=== PATIENT | male | born 1975 | race African-American/Black ===

== ENCOUNTER 2022-03-07 12:15 | Inpatient (IN) | payer OTHER ==
[~2022-03-07] VITALS: Ht 182.9 cm; Wt 83.0 kg
[2022-03-07 13:12] LABS: Albumin 3.7 g/dL (3.4-5.0); Calcium 10.4 mg/dL (8.5-10.1); Magnesium 2.4 mg/dL (1.6-2.6)
[2022-03-07 13:15] LABS: Bilirubin, Total 0.6 mg/dL (0.2-1.0); Total Protein 8.5 g/dL (6.4-8.2)
[2022-03-07] MEDS ORDERED: SODIUM CHLORIDE 0.9% 1,000 ML IV ONE ×2 (13:15)
[2022-03-07] MEDS ORDERED: InsuLIN REG 1unit/0.01ml Soln (100units/ml) IV ONE (13:15)
[2022-03-07 13:43] LABS: BUN/Creatinine Ratio 14.9
[2022-03-07 13:44] LABS: Eosinophils # (auto) 0 10 ^3/uL (0-0.8); Eosinophils % (auto) 0.7 % (0.0-7.0); Hemoglobin 14.6 g/dL (13.5-17.5); Monocytes # (auto) 0.7 10 ^3/uL (0-1.3); Neutrophils # (auto) 3.9 10 ^3/uL (1.6-8.6); Nucleated Red Blood Cells % 0.1 %
[2022-03-07] MEDS ORDERED: ASPirin 325 MG TAB PO ONE ×2 (13:45→21:15)
[2022-03-07 13:46] LABS: Basophils # (auto) 0.1 10 ^3/uL (0-0.2); Basophils % (auto) 0.9 % (0.0-2.0); Hematocrit 46.8 % (41.0-53.0); Lymphocytes # (auto) 1.5 10 ^3/uL (0.4-5.4); Lymphocytes % (auto) 24.7 % (10.0-50.0); Mean Corpuscular Hemoglobin 26.4 pg (28.0-32.0); Mean Corpuscular Hgb Conc. 31.3 g/dL (32.0-36.0); Mean Corpuscular Volume 84.5 fL (80.0-100.0); Monocytes % (auto) 11.3 % (0.0-12.0); Neutrophils % (auto) 62.4 % (37.0-80.0); Red Blood Cells 5.54 10^6/uL (4.5-5.90); Red Cell Distribution Width 15.4 % (11.8-14.3); White Blood Cell 6.2 10^3/uL (4.4-10.8)
[2022-03-07 14:23] LABS: Lactic Acid w/Reflex 2.5 mmol/L (0.4-2.0)
[2022-03-07 14:54] LABS: Urine Bacteria NONE SEEN /hpf (None Seen); Urine Blood Negative /uL (Negative); Urine Specific Gravity 1.029 (1.001-1.035); Urine WBC 1 /hpf (0 - 3)
[2022-03-07] MEDS ORDERED: NITROGLYCERIN 0.4 MG SL TAB SL PRN (20:15)
[2022-03-07] MEDS ORDERED: InsuLIN R (HUMAN) 100 UNITS in SODIUM CHL 0.9% 99 ML IV SCH (20:15)
[2022-03-07] MEDS ORDERED: ONDANSETRON HCL 4 MG/2 ML VIAL IV PRN (20:15)
[2022-03-07] MEDS ORDERED: INSULIN LANTUS (GLARGINE) 1 /0.01ml (100units/ml) SC ONE (20:15)
[2022-03-07] MEDS ORDERED: MORPHINE SULFATE INJ 2 MG/ml SYRG IV PRN (20:15)
[2022-03-07] MEDS ORDERED: DEXTROSE (50%) 50ML SYRG IV PRN (20:15)
[2022-03-07 20:48] LABS: Cholesterol 351 mg/dL (< 200); Triglycerides 239 mg/dL (< 150)
[2022-03-07 20:51] LABS: HDL Cholesterol 65 mg/dL (40-59); LDL Cholesterol 263 mg/dL (< 100)
[2022-03-07 21:34] LABS: Magnesium 2.4 mg/dL (1.6-2.6); Phosphorus 2.5 mg/dL (2.5-4.90)
[2022-03-07] MEDS: ACCU-CHEK COMFORT CURVE STRIP VI SCH ×2 (22:00→22:55)
[2022-03-08] MEDS: ATORVASTATIN 20 MG TAB PO SCH ×2 (00:06→22:29)
[2022-03-08] MEDS: ACCU-CHEK COMFORT CURVE STRIP VI SCH ×5 (00:08→22:42)
[2022-03-08] MEDS ORDERED: DEXTROSE (50%) 50ML SYRG IV PRN (00:45)
[2022-03-08] MEDS ORDERED: InsuLIN REG 1unit/0.01ml Soln (100units/ml) SC ONE (00:45)
[2022-03-08 00:55] LABS: BUN/Creatinine Ratio 15.3; Calcium 10.2 mg/dL (8.5-10.1)
[2022-03-08] MEDS ORDERED: SODIUM CHLORIDE 0.9% 1,000 ML IV SCH (02:15)
[2022-03-08 06:24] LABS: Basophils # (auto) 0 10 ^3/uL (0-0.2); Basophils % (auto) 0.9 % (0.0-2.0); Eosinophils # (auto) 0.1 10 ^3/uL (0-0.8); Eosinophils % (auto) 2.5 % (0.0-7.0); Hematocrit 41.5 % (41.0-53.0); Hemoglobin 13.9 g/dL (13.5-17.5); Lymphocytes # (auto) 2.1 10 ^3/uL (0.4-5.4); Lymphocytes % (auto) 38.3 % (10.0-50.0); Mean Corpuscular Hemoglobin 26.9 pg (28.0-32.0); Mean Corpuscular Hgb Conc. 33.4 g/dL (32.0-36.0); Mean Corpuscular Volume 80.5 fL (80.0-100.0); Monocytes # (auto) 0.7 10 ^3/uL (0-1.3); Monocytes % (auto) 12.7 % (0.0-12.0); Neutrophils # (auto) 2.5 10 ^3/uL (1.6-8.6); Neutrophils % (auto) 45.6 % (37.0-80.0); Nucleated Red Blood Cells % 0.1 %; Red Blood Cells 5.15 10^6/uL (4.5-5.90); Red Cell Distribution Width 15.2 % (11.8-14.3); White Blood Cell 5.5 10^3/uL (4.4-10.8)
[2022-03-08 06:35] LABS: BUN/Creatinine Ratio 17.1; Calcium 9.8 mg/dL (8.5-10.1); Potassium 4.3 mmol/L (3.5-5.1)
[2022-03-08] MEDS: InsuLIN REG 1unit/0.01ml Soln (100units/ml) SC SCH ×3 (06:46→17:17)
[2022-03-08] MEDS ORDERED: INSULIN LANTUS (GLARGINE) 1 /0.01ml (100units/ml) SC SCH (10:00)
[2022-03-08] MEDS: ENOXAPARIN SOD 40 MG/0.4 ML SYRINGE SC SCH (10:01)
[2022-03-08] MEDS: ASPirin 81 mg TAB PO SCH (10:01)
[2022-03-08 13:27] LABS: BUN/Creatinine Ratio 14.4; Calcium 10.2 mg/dL (8.5-10.1)
[2022-03-08 18:29] LABS: Potassium 3.7 mmol/L (3.5-5.1)
[2022-03-08 18:34] LABS: BUN/Creatinine Ratio 17.8; Calcium 10.1 mg/dL (8.5-10.1)
[2022-03-08] MEDS ORDERED: InsuLIN REG 1unit/0.01ml Soln (100units/ml) SC SCH (22:00)
[2022-03-09 07:11] LABS: Basophils # (auto) 0 10 ^3/uL (0-0.2); Basophils % (auto) 0.7 % (0.0-2.0); Eosinophils # (auto) 0.2 10 ^3/uL (0-0.8); Eosinophils % (auto) 3.1 % (0.0-7.0); Hemoglobin 12.8 g/dL (13.5-17.5); Lymphocytes # (auto) 2.3 10 ^3/uL (0.4-5.4); Lymphocytes % (auto) 45.6 % (10.0-50.0); Mean Corpuscular Volume 81.3 fL (80.0-100.0); Monocytes # (auto) 0.7 10 ^3/uL (0-1.3); Monocytes % (auto) 12.9 % (0.0-12.0); Neutrophils # (auto) 1.9 10 ^3/uL (1.6-8.6); Neutrophils % (auto) 37.7 % (37.0-80.0); Nucleated Red Blood Cells % 0.2 %; Red Blood Cells 4.92 10^6/uL (4.5-5.90); Red Cell Distribution Width 15.3 % (11.8-14.3); White Blood Cell 5.1 10^3/uL (4.4-10.8)
[2022-03-09 07:17] LABS: Calcium 9.4 mg/dL (8.5-10.1); Potassium 3.6 mmol/L (3.5-5.1)
[2022-03-09 07:19] LABS: BUN/Creatinine Ratio 21.7
[2022-03-09] MEDS: ACCU-CHEK COMFORT CURVE STRIP VI SCH ×2 (07:20→12:30)
[2022-03-09] MEDS: InsuLIN REG 1unit/0.01ml Soln (100units/ml) SC SCH ×2 (07:23→12:34)
[2022-03-09] MEDS ORDERED: INSULIN LANTUS (GLARGINE) 1 /0.01ml (100units/ml) SC SCH (10:00)
[2022-03-09] MEDS: ASPirin 81 mg TAB PO SCH (11:00)
[2022-03-09] MEDS: ENOXAPARIN SOD 40 MG/0.4 ML SYRINGE SC SCH (11:01)
[2022-03-09] MEDS ORDERED: INSREGI SC (11:22)
[2022-03-09] MEDS ORDERED: METF-370 PO (11:22)
[2022-03-09] MEDS ORDERED: INSLANTI SC (11:22)
[2022-03-09 11:26] VITALS: BP 120/73
== END 2022-03-09 12:53 | disposition home or self-care (01) | DRG 637 ==
LOC: ER 12:15 → TELE 20:14
PROVIDERS: ADMIT Registered Nurse; ATTEND Internal Medicine Pulmonary Disease
DX: E11.10 Type 2 diabetes mellitus with ketoacidosis without coma (principal); I21.A1 Myocardial infarction type 2; E78.5 Hyperlipidemia, unspecified; J45.909 Unspecified asthma, uncomplicated; Z20.822 Contact with and (suspected) exposure to COVID-19; E11.65 Type 2 diabetes mellitus with hyperglycemia
CPT/HCPCS: 36415; 36600; 71045; 80048; 80053; 80061; 81001; 82010; 82805; 82962; 83036; 83605; 83735; 83930; 84100; 84443; 84484; 85025; 87426; 93005; 93306; 96361; 96372; 96374; 99291; G0378; J1815